=== PATIENT | male | born 1965 | race Caucasian/White ===

== ENCOUNTER → 2020-01-05 | Outpatient (CLI) | payer OTHER ==
[~2020-01-05] MED LIST: COUMADIN 5 MG TA5 M1 PO; ELIQUIS5 MG PO; ENOXAPARIN100 MG/11 SUBQ; FISH OIL 1,001000 M2 PO; NOHOMEMEDICATIONS
== END ==
LOC: CAT 15:41
PROVIDERS: ATTEND Internal Medicine Cardiovascular Disease
DX: Z13.6 Encounter for screening for cardiovascular disorders (principal); I25.10 Atherosclerotic heart disease of native coronary artery without angina pectoris; E78.00 Pure hypercholesterolemia, unspecified

== ENCOUNTER → 2020-01-20 | Outpatient (CLI) | payer OTHER | LOC: SJCVCIMAG 09:24 | PROVIDERS: ATTEND Internal Medicine Cardiovascular Disease | DX: I37.1 Nonrheumatic pulmonary valve insufficiency (principal); Z86.718 Personal history of other venous thrombosis and embolism; Z86.711 Personal history of pulmonary embolism ==